=== PATIENT | female | born 2005 | race Two or more races ===

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

== ENCOUNTER 2023-01-25 09:44 | Emergency (ER) | payer OTHER ==
[~2023-01-25] VITALS: Ht 165.1 cm; Wt 61.2 kg
[2023-01-25] MEDS ORDERED: PEPCID AC20 MG PO (16:57)
[2023-01-25] MEDS ORDERED: ONDANSETRON ODT8 MG PO (16:57)
[2023-01-26] MEDS ORDERED: PRENATABS RX T1 EACH (18:55)
== END 2023-01-25 17:10 | disposition home or self-care (01) ==
LOC: ER 09:44
DX: K52.89 Other specified noninfective gastroenteritis and colitis (principal); R11.10 Vomiting, unspecified; Z3A.12 12 weeks gestation of pregnancy

== ENCOUNTER 2023-01-26 18:37 | Emergency (ER) | payer OTHER ==
[~2023-01-26] VITALS: Ht 167.6 cm; Wt 63.5 kg
[~2023-01-26 18:37] MED LIST: ONDANSETRON ODT8 MG PO; PEPCID AC20 MG PO
[2023-01-26] MEDS ORDERED: PRENATABS RX T1 EACH (18:55)
== END 2023-01-27 01:29 | disposition home or self-care (01) ==
LOC: EMR PED 18:37 → ER 18:40
DX: T78.49XA Other allergy, initial encounter (principal); J02.9 Acute pharyngitis, unspecified; T45.0X5A Adverse effect of antiallergic and antiemetic drugs, initial encounter; Y92.89 Other specified places as the place of occurrence of the external cause; X58.XXXA Exposure to other specified factors, initial encounter; Z3A.11 11 weeks gestation of pregnancy; Z88.8 Allergy status to other drugs, medicaments and biological substances

== ENCOUNTER 2023-07-27 13:45 | Inpatient (IN) | payer OTHER ==
[~2023-07-27] VITALS: Ht 160 cm; Wt 79.4 kg
[~2023-07-27 13:45] MED LIST changes: +PRENATABS RX T1 EACH
[2023-08-06 06:39] LABS: PH,URINE 6.5 (5.0-8.0); URINE APPEARANCE Clear; URINE BILIRRUBIN Negative (NEGATIVE); URINE BLOOD Negative; URINE COLOR Yellow; URINE GLUCOSE Negative (NEGATIVE); URINE LEUKOCYTE Small; URINE NITRATE Negative; URINE PROTEIN Negative (NEGATIVE); URINE UROBILINOGEN 0.2 E.U./dl
[2023-08-06 06:40] LABS: HEMATOCRIT 35.5 % (36.0-45.00); MEAN CELL VOLUME 93.8 fL (80.00-100.00); MEAN CORPUSCULAR HEMOGLOBIN 31.6 pg (27.00-32.0); MEAN CORPUSCULAR HGB CONC 33.7 g/dl (32.0-36.0); PLATELET COUNT 241 K/uL (150-450); RED BLOOD COUNT 3.79 M/uL (4.00-6.00)
[2023-08-06 06:41] LABS: RED CELL DISTRIBUTION WIDTH 21.6 % (11.5-14.5); URINE BACTERIA 681.6 uL (0.0-1933); URINE EPITHELIAL CELLS 8.9 uL (0.0-38.8); URINE RBC 21.9 uL (0.0-20.8); URINE WBC 105.8 uL (0.0-23.2)
[2023-08-06 06:46] LABS: INR < 0.93; PARTIAL THROMBOPLASTIN TIME 24.9 SECONDS (22.0-34.0); PROTHROMBIN TIME 9.7 SECONDS (9.0-11.5)
[2023-08-06 07:22] LABS: BILIRUBIN TOTAL 0.32 mg/dL (0.3-1.2); CALCIUM 9.2 mg/dL (8.5-10.1); CREATININE SERUM 0.51 mg/dL (0.55-1.02); GFR 153.74; GLOBULINA 3.8 G/DL (2.4-3.5); POTASSIUM 4.34 mEq/L (3.5-5.1); TOTAL PROTEIN 6.8 gm/dL (6.4-8.2)
[2023-08-07 01:47] LABS: HEMATOCRIT 33.6 % (36.0-45.00); HEMOGLOBIN 11.2 g/dL (12.0-15.00); MEAN CORPUSCULAR HEMOGLOBIN 30.8 pg (27.00-32.0); MEAN CORPUSCULAR HGB CONC 33.5 g/dl (32.0-36.0); PLATELET COUNT 241 K/uL (150-450); RED BLOOD COUNT 3.65 M/uL (4.00-6.00); RED CELL DISTRIBUTION WIDTH 21.9 % (11.5-14.5)
== END 2023-08-08 14:39 | disposition home or self-care (01) | DRG 807 ==
LOC: LDR 08-06 05:27 → OB/GYN 08-06 13:45
PROVIDERS: ADMIT Specialist; ATTEND Specialist
PROC: 10E0XZZ Delivery of Products of Conception, External Approach (ICD-10-PCS; principal; 2023-08-06)
PROC: 0W8NXZZ Division of Female Perineum, External Approach (ICD-10-PCS; 2023-08-06)
PROC: 4A1HXCZ Monitoring of Products of Conception, Cardiac Rate, External Approach (ICD-10-PCS; 2023-08-06)
DX: O80 Encounter for full-term uncomplicated delivery (principal); Z37.0 Single live birth; Z3A.40 40 weeks gestation of pregnancy; Z20.822 Contact with and (suspected) exposure to COVID-19

== ENCOUNTER → 2024-03-29 | Emergency (ER) | payer OTHER ==
[~2024-03-29] VITALS: Ht 160 cm; Wt 76.2 kg
== END | disposition home or self-care (01) ==
LOC: ER 10:36
DX: M94.0 Chondrocostal junction syndrome [Tietze] (principal); Z88.8 Allergy status to other drugs, medicaments and biological substances

== ENCOUNTER 2024-09-07 09:40 | Emergency (ER) | payer OTHER ==
[~2024-09-07] VITALS: Ht 160 cm; Wt 68.0 kg
[2024-09-07] MEDS ORDERED: GUAIFENESIN/DEXTROMETHORPHAN 10ML BLIST.PACK PO ONE ×2 (11:15→11:24)
[2024-09-07 11:53] LABS: HEMATOCRIT 37.9 % (36.0-45.00); HEMOGLOBIN 13.2 g/dL (12.0-15.00); MEAN CELL VOLUME 91.8 fL (80.00-100.00); MEAN CORPUSCULAR HGB CONC 34.9 g/dl (32.0-36.0); PLATELET COUNT 262 K/uL (150-450); RED BLOOD COUNT 4.14 M/uL (4.00-6.00); RED CELL DISTRIBUTION WIDTH 13.3 % (11.5-14.5)
[2024-09-07 12:17] LABS: CALCIUM 9.5 mg/dL (8.5-10.1); CREATININE SERUM 0.51 mg/dL (0.55-1.02); GFR 152.23; POTASSIUM 4.06 mEq/L (3.5-5.1)
== END 2024-09-07 14:36 | disposition home or self-care (01) ==
LOC: ER 09:42
PROVIDERS: Emergency Medicine
DX: J40 Bronchitis, not specified as acute or chronic (principal); B34.9 Viral infection, unspecified; Z20.822 Contact with and (suspected) exposure to COVID-19; Z88.8 Allergy status to other drugs, medicaments and biological substances

== ENCOUNTER 2024-11-29 09:04 | Emergency (ER) | payer OTHER ==
[~2024-11-29] VITALS: Ht 160 cm; Wt 70.3 kg
[2024-11-29] MEDS ORDERED: FAMOTIDINE/PF 20 MG in 0.9 % SODIUM CHLORIDE 8 ML IV PUSH STA (09:33)
[2024-11-29] MEDS ORDERED: METOCLOPRAMIDE HCL 5 MG/ML VIAL ONE (09:40)
[2024-11-29] MEDS ORDERED: FAMOTIDINE/PF 20 MG/2 ML VIAL ONE (09:40)
[2024-11-29] MEDS ORDERED: DIPHENOXYLATE HCL/ATROPINE 1 UDTAB TABLET PO ONE (09:45)
[2024-11-29] MEDS ORDERED: METOCLOPRAMIDE HCL 10 MG in DEXTROSE 5 % IN WATER 50 ML IV ONE (09:45)
[2024-11-29] MEDS ORDERED: 0.9 % SODIUM CHLORIDE 1,000 ML IV SCH (09:45)
[2024-11-29 10:20] LABS: HEMATOCRIT 42.8 % (36.0-45.00); HEMOGLOBIN 14.8 g/dL (12.0-15.00); MEAN CELL VOLUME 92.1 fL (80.00-100.00); MEAN CORPUSCULAR HEMOGLOBIN 31.9 pg (27.00-32.0); MEAN CORPUSCULAR HGB CONC 34.7 g/dl (32.0-36.0); PLATELET COUNT 327 K/uL (150-450); RED BLOOD COUNT 4.65 M/uL (4.00-6.00); RED CELL DISTRIBUTION WIDTH 13.2 % (11.5-14.5)
[2024-11-29 10:49] LABS: ALBUMIN 4.1 gm/dL (3.4-5.0); BILIRUBIN TOTAL 0.38 mg/dL (0.3-1.2); CALCIUM 9.5 mg/dL (8.5-10.1); CREATININE SERUM 0.72 mg/dL (0.55-1.02); GFR 102.25; GLOBULINA 4.8 G/DL (2.4-3.5); POTASSIUM 4.01 mEq/L (3.5-5.1); TOTAL PROTEIN 8.9 gm/dL (6.4-8.2)
[2024-11-29] MEDS ORDERED: KETOROLAC TROMETHAMINE 30 MG VIAL ONE (12:55)
[2024-11-29] MEDS ORDERED: KETOROLAC TROMETHAMINE 30 MG VIAL IV ONE (13:00)
[2024-11-29] MEDS ORDERED: METOCLOPRAMIDE10 MG PO (13:45)
[2024-11-29 14:13] VITALS: BP 109/76; O2SAT 100
== END 2024-11-29 14:17 | disposition home or self-care (01) ==
LOC: ER 09:05
PROVIDERS: General Practice
DX: K52.89 Other specified noninfective gastroenteritis and colitis (principal); Z88.8 Allergy status to other drugs, medicaments and biological substances

== ENCOUNTER → 2025-01-15 | Emergency (ER) | payer OTHER ==
[~2025-01-15] VITALS: Ht 160 cm; Wt 68.0 kg
[~2025-01-15] MED LIST changes: +0.9 % SODIUM CHLORIDE 1,000 ML IV STA; +CEFTRIAXONE SODIUM 1,000 MG VIAL IV ONE; +METOCLOPRAMIDE10 MG PO
[2025-01-15 10:54] LABS: BASO % 0.4 % (0.1-1.2); EOS # 0.16 (0.04-0.54); EOS % 1.6 % (0.7-7.0); HEMATOCRIT 38.3 % (34.1-44.9); HEMOGLOBIN 13.3 g/dL (11.2-15.7); LYMPH # 1.37 (1.18-3.74); LYMPH % 13.9 % (19.3-53.1); MEAN CORPUSCULAR HEMOGLOBIN 31.1 pg (25.6-32.2); MONO # 0.61 (0.24-0.82); MONO % 6.2 % (4.7-12.5); NEUT # 7.63 (1.56-6.13); NEUT % 77.6 % (34.0-71.1); PLATELET COUNT 305 K/uL (163-369); RED BLOOD COUNT 4.27 M/uL (3.93-5.22); RED CELL DISTRIBUTION WIDTH 12.7 % (11.6-14.4)
[2025-01-15 11:18] LABS: CALCIUM 8.8 mg/dL (8.5-10.1); CREATININE SERUM 0.57 mg/dL (0.55-1.02); GFR 133.89; POTASSIUM 3.53 mEq/L (3.5-5.1)
[2025-01-15 13:23] LABS: URINE APPEARANCE Clear; URINE BILIRRUBIN Negative (NEGATIVE); URINE BLOOD Small; URINE COLOR Yellow; URINE GLUCOSE Negative (NEGATIVE); URINE LEUKOCYTE Small; URINE NITRATE Negative; URINE PROTEIN Negative (NEGATIVE)
[2025-01-15 13:27] LABS: URINE BACTERIA 685.3 uL (0.0-1933); URINE EPITHELIAL CELLS 25.1 uL (0.0-38.8); URINE RBC 57.3 uL (0.0-20.8); URINE WBC 39.5 uL (0.0-23.2)
[2025-01-15 13:36] LABS: URINE KETONE 40 (NEGATIVE)
== END | disposition left against medical advice (07) ==
LOC: ER 08:39
PROVIDERS: Emergency Medicine
DX: O99.611 Diseases of the digestive system complicating pregnancy, first trimester (principal); K92.89 Other specified diseases of the digestive system; K52.89 Other specified noninfective gastroenteritis and colitis; Z88.1 Allergy status to other antibiotic agents

== ENCOUNTER 2025-04-29 08:29 | Emergency (ER) | payer OTHER ==
[~2025-04-29] VITALS: Ht 160 cm; Wt 68.5 kg
[~2025-04-29 08:29] MED LIST changes: -0.9 % SODIUM CHLORIDE 1,000 ML IV STA; -CEFTRIAXONE SODIUM 1,000 MG VIAL IV ONE
[2025-04-29 10:06] LABS: COVID-19 AG POSITIVE (NEGATIVE)
== END 2025-04-29 10:20 | disposition home or self-care (01) ==
LOC: ER 08:29
PROVIDERS: General Practice
DX: U07.1 COVID-19 (principal); Z88.8 Allergy status to other drugs, medicaments and biological substances

== ENCOUNTER 2025-08-11 21:17 | Emergency (ER) | payer OTHER ==
[~2025-08-11] VITALS: Ht 160 cm; Wt 68.9 kg
[2025-08-11] MEDS ORDERED: 0.9 % SODIUM CHLORIDE 1,000 ML IV ONE ×2 (23:00)
[2025-08-11] MEDS ORDERED: PROMETHAZINE HCL 25 MG/ML AMPUL IM ONE (23:00)
[2025-08-11] MEDS ORDERED: FAMOTIDINE/PF 20 MG in 0.9 % SODIUM CHLORIDE 8 ML IV PUSH ONE (23:00)
[2025-08-12] MEDS ORDERED: FAMOTIDINE/PF 20 MG/2 ML VIAL ONE (00:38)
[2025-08-12 01:11] LABS: BASO % 0.3 % (0.1-1.2); EOS # 0.10 (0.04-0.54); EOS % 1.0 % (0.7-7.0); LYMPH # 0.62 (1.18-3.74); LYMPH % 6.3 % (19.3-53.1); MEAN PLATELET VOLUME 8.50 fl (9.4-12.4); MONO # 0.52 (0.24-0.82); MONO % 5.3 % (4.7-12.5); NEUT # 8.48 (1.56-6.13); NEUT % 86.8 % (34.0-71.1); RED CELL DISTRIBUTION WIDTH 12.3 % (11.6-14.4)
[2025-08-12 02:11] LABS: ALT/SGPT 18 U/L (12-78); AST/SGOT 19 U/L (15-37); BILIRUBIN TOTAL 0.58 mg/dL (0.3-1.2); BUN CREA RATIO 30 (7.0-25.0); CREATININE SERUM 0.61 mg/dL (0.55-1.02); GFR 122.65; GLOBULINA 3.9 G/DL (2.4-3.5); GLUCOSE FASTING 110 mg/dL (65-100); OSMOLALITY SERUM 280 MOSM/KG (275-295)
[2025-08-12 02:27] LABS: HCG QUANTITATIVE < 1 mUI/mL (1-3)
[2025-08-12] MEDS ORDERED: PROMETHAZINE HCL 25 MG/ML AMPUL ONE (04:52)
[2025-08-12 05:26] LABS: URINE APPEARANCE Clear; URINE BILIRRUBIN Negative (NEGATIVE); URINE BLOOD Trace; URINE COLOR Yellow; URINE GLUCOSE Negative (NEGATIVE); URINE KETONE 15 (NEGATIVE); URINE LEUKOCYTE Negative; URINE NITRATE Negative; URINE PROTEIN Trace (NEGATIVE); URINE UROBILINOGEN 0.2 E.U./dl
[2025-08-12 05:30] LABS: URINE BACTERIA 54.9 uL (0.0-1933); URINE CAST 1.98 uL (0.0-1.40); URINE EPITHELIAL CELLS 32.5 uL (0.0-38.8); URINE RBC 59.6 uL (0.0-20.8); URINE WBC 21.4 uL (0.0-23.2)
[2025-08-12 05:36] LABS: TYPE CELLS SQUAMOUS
[2025-08-12] MEDS ORDERED: PEPCID AC20 MG PO (09:18)
== END 2025-08-12 10:10 | disposition home or self-care (01) ==
LOC: ER 21:17
PROVIDERS: General Practice
DX: K52.89 Other specified noninfective gastroenteritis and colitis (principal); E86.0 Dehydration; Z88.8 Allergy status to other drugs, medicaments and biological substances